=== PATIENT | female | born 1940 | race Caucasian/White ===

== ENCOUNTER 2023-05-18 14:19 | Emergency (ER) | payer MEDICARE, BC ==
[2023-05-18] MEDS ORDERED: Ipratropium/Albuterol 3 ML NEB ONE ×2 (14:52→15:55)
[2023-05-18 15:01] LABS: #Basophils 0.1 10x3/uL (0.0-0.2); #Eosinphils 0.5 10x3/uL (0.0-0.5); #Monocytes 0.8 10x3/uL (0.0-1.1); #Neutrophils 5.3 10x3/uL (1.5-8.4); %Basophils 0.7 % (0.0-2.0); %Lymphocytes 23.5 % (18.0-47.0); %Monocytes 8.9 % (0.0-10.0); %Neutrophils 60.7 % (40.0-75.0); Hematocrit 39.3 % (34.9-44.5); Hemoglobin 12.9 g/dL (12.0-15.5); Mean Corpuscular HGB CONC 32.8 g/dL (32.0-36.0); Mean Corpuscular Hemoglobin 28.2 pg (27.0-33.0); Mean Platelet Volume 9.4 fl (7.4-10.4); Platelet Count 297 10x3/uL (150-450); Red Blood Cell (RBC) Count 4.57 10x6/uL (3.90-5.03); White Blood Cell (WBC) Count 8.7 10x3/uL (3.5-10.5)
[2023-05-18 15:14] LABS: ALT (SGPT) 12 U/L (8-55); AST (SGOT) 20 U/L (5-34); Alkaline Phosphatase 83 U/L (40-110); Anion Gap 16 mmol/L (10-20); BUN (Urea Nitrogen) 16 mg/dL (9.8-20.1); Bilirubin, Total 0.4 mg/dL (0.2-1.2); Calc. Creatinine Clearance 0 mL/min (70-130); Calcium 8.9 mg/dL (7.8-10.44); Carbon Dioxide 28 mmol/L (23-31); Chloride 101 mmol/L (98-107); Estimated GFR 42; Globulin 2.8 g/dL (2.4-3.5); Glucose 107 mg/dL (83-110); Potassium 3.3 mmol/L (3.5-5.1); Protein, Total 6.8 g/dL (5.8-8.1); Sodium 142 mmol/L (136-145)
[2023-05-18] MEDS ORDERED: methylPREDNISolone Sod Succ/PF 125 MG/2 ML VIAL ONE (15:15)
[2023-05-18 17:30] LABS: Actual Bicarbonate (HCO3v) 27.9 mEq/L (22-28); Base Excess 2.2 mEq/L (-2 - +2); Calcium, Ionized (venous) 1.12 mmol/L (1.16-1.32); Chloride (VBG) 99 mmol/L (98-106); Hematocrit-VBG 41 % (36.0-47.0); Hemoglobin (Hb) 13.8 g/dL (11.7-16.1); Potassium (VBG) 2.97 mmol/L (3.70-5.30); Puncture Site Other Site; RapidComm Collect By CBN; Sodium 141.1 mmol/L (133-146); pH (venous) 7.388 (7.32-7.43)
== END 2023-05-18 18:57 | disposition home or self-care (01) ==
LOC: CSHERS 14:19
DX: R06.02 Shortness of breath (principal); I10 Essential (primary) hypertension
CPT/HCPCS: 36415; 71045; 80053; 82805; 83605; 85025; 85379; 93005; 94640; 94760; 96374; J2930; J7620

== ENCOUNTER 2023-08-26 13:25 | Inpatient (IN) | payer MEDICARE, BC ==
[2023-08-26] MEDS ORDERED: Ipratropium/Albuterol 3 ML NEB ONE (13:42)
[2023-08-26 14:17] LABS: #Basophils 0.1 10x3/uL (0.0-0.2); #Eosinphils 0.1 10x3/uL (0.0-0.5); #Monocytes 1.1 10x3/uL (0.0-1.1); %Basophils 0.7 % (0.0-2.0); %Eosinophils 1.6 % (0.0-6.0); %Lymphocytes 26.8 % (18.0-47.0); %Monocytes 15.3 % (0.0-10.0); %Neutrophils 55.3 % (40.0-75.0); Hematocrit 41.2 % (34.9-44.5); Hemoglobin 13.6 g/dL (12.0-15.5); Mean Corpuscular Hemoglobin 28.6 pg (27.0-33.0); Mean Corpuscular Volume 86.7 fl (81.6-98.3); Mean Platelet Volume 9.4 fl (7.4-10.4); Platelet Count 229 10x3/uL (150-450); RBC Distribution Width 13.8 % (11.5-14.5); Red Blood Cell (RBC) Count 4.75 10x6/uL (3.90-5.03); White Blood Cell (WBC) Count 7.3 10x3/uL (3.5-10.5)
[2023-08-26 14:35] LABS: PTT 26.8 sec (22.0-33.0)
[2023-08-26 14:41] LABS: ALT (SGPT) 20 U/L (8-55); AST (SGOT) 28 U/L (5-34); Albumin 3.8 g/dL (3.4-4.8); Alkaline Phosphatase 76 U/L (40-110); Anion Gap 16 mmol/L (10-20); BUN (Urea Nitrogen) 22 mg/dL (9.8-20.1); Bilirubin, Total 0.2 mg/dL (0.2-1.2); Calc. Creatinine Clearance 0 mL/min (70-130); Calcium 8.8 mg/dL (7.8-10.44); Carbon Dioxide 24 mmol/L (23-31); Chloride 99 mmol/L (98-107); Estimated GFR 39; Globulin 2.5 g/dL (2.4-3.5); Glucose 155 mg/dL (83-110); Lipase 42 U/L (8-78); Magnesium 1.9 mg/dL (1.6-2.6); Potassium 3.4 mmol/L (3.5-5.1); Protein, Total 6.3 g/dL (5.8-8.1); Sodium 136 mmol/L (136-145)
[2023-08-26 14:48] LABS: Troponin I 0.033 ng/mL (< 0.028)
[2023-08-26 15:09] LABS: SARS-CoV-2 NAA Rapid Test DETECTED (NotDetected)
[2023-08-26] MEDS ORDERED: Potassium Chloride 20 MEQ TAB ONE (15:45)
[2023-08-26] MEDS ORDERED: Aspirin Chewable 81 MG TAB ONE (15:47)
[2023-08-26] MEDS ORDERED: Acetaminophen 325 MG TAB PO PRN (15:57)
[2023-08-26] MEDS ORDERED: Senokot S 8.6-50 MG TAB PO PRN (15:57)
[2023-08-26] MEDS ORDERED: Acetaminophen 650 MG Suppository PR PRN (15:57)
[2023-08-26] MEDS ORDERED: Benzonatate 100 MG CAP PO PRN (15:57)
[2023-08-26] MEDS ORDERED: Ondansetron ODT 4 MG TAB PO PRN (15:57)
[2023-08-26] MEDS ORDERED: Sodium Chloride 0.9% 1,000 ML IV SCH (16:00)
[2023-08-26] MEDS ORDERED: Ventolin HFA Inhaler 60 PUFF INHALER INH PRN (16:20)
[2023-08-26 17:30] LABS: Troponin I 0.017 ng/mL (< 0.028)
[2023-08-26] MEDS ORDERED: Famotidine 20 MG TAB PO SCH (21:00)
[2023-08-26] MEDS ORDERED: Dexamethasone 10 MG/ML VIAL SLOW IVP SCH (21:00)
[2023-08-26 21:44] LABS: Troponin I 0.013 ng/mL (< 0.028)
[2023-08-26] MEDS ORDERED: Dexamethasone 4 MG TAB PO SCH (22:15)
[2023-08-26] MEDS: Ipratropium/Albuterol 3 ML NEB EZPAP SCH ×2 (22:33→22:49)
[2023-08-26] MEDS ORDERED: Ziprasidone 20 MG VIAL IM SCH (23:30)
[2023-08-26] MEDS ORDERED: Sterile Water 10 ML ONE (23:41)
[2023-08-26] MEDS: Simvastatin 10 MG TAB PO SCH (23:47)
[2023-08-27] MEDS: Ipratropium/Albuterol 3 ML NEB EZPAP SCH ×2 (03:02→07:00)
[2023-08-27 04:09] LABS: Anion Gap 17 mmol/L (10-20); BUN (Urea Nitrogen) 29 mg/dL (9.8-20.1); Calc. Creatinine Clearance 0 mL/min (70-130); Calcium 9.3 mg/dL (7.8-10.44); Carbon Dioxide 18 mmol/L (23-31); Chloride 104 mmol/L (98-107); Estimated GFR 39; Glucose 129 mg/dL (83-110); Potassium 4.2 mmol/L (3.5-5.1); Sodium 135 mmol/L (136-145)
[2023-08-27] MEDS ORDERED: Ventolin HFA Inhaler 60 PUFF INHALER INH SCH (07:15)
[2023-08-27] MEDS ORDERED: Ascorbic Acid 500 mg Chewable Tablet PO SCH (09:00)
[2023-08-27] MEDS ORDERED: Dexamethasone 20 MG/5 ML VIAL SLOW IVP SCH (09:00)
[2023-08-27] MEDS ORDERED: Dexamethasone 4 mg/ml Vial SLOW IVP SCH (09:00)
[2023-08-27] MEDS: guaiFENesin ER 600 MG TAB PO SCH ×2 (09:56→20:04)
[2023-08-27] MEDS: Ascorbic Acid 500 mg Chewable Tablet PO SCH (09:56)
[2023-08-27] MEDS: Ventolin HFA Inhaler 60 PUFF INHALER INH SCH ×4 (11:00→23:00)
[2023-08-27] MEDS ORDERED: Dexamethasone 4 MG TAB PO SCH (18:30)
[2023-08-27] MEDS ORDERED: cloNIDine 0.1 MG TAB PO PRN (18:44)
[2023-08-27] MEDS: Heparin 5,000 UNITS/ML VIAL SC SCH ×2 (20:03→20:16)
[2023-08-27] MEDS: Simvastatin 10 MG TAB PO SCH (20:04)
[2023-08-27] MEDS ORDERED: Cholecalciferol 1,000 UNITS (25 MCG) TAB PO SCH (21:00)
[2023-08-27] MEDS ORDERED: Multivit, Therapeutic 1 TAB PO SCH (21:00)
[2023-08-27] MEDS ORDERED: Famotidine 20 MG TAB PO SCH (21:00)
[2023-08-27] MEDS ORDERED: Zinc Sulfate 220 MG CAP PO SCH (21:00)
[2023-08-27] MEDS ORDERED: traZODone HCl 50 MG TAB PO SCH (23:00)
[2023-08-28 03:00] VITALS: BMI 25.4
[2023-08-28] MEDS: Ventolin HFA Inhaler 60 PUFF INHALER INH SCH ×4 (03:00→16:00)
[2023-08-28 04:22] LABS: #Monocytes 0.6 10x3/uL (0.0-1.1); #Neutrophils 8.4 10x3/uL (1.5-8.4); %Basophils 0.1 % (0.0-2.0); %Lymphocytes 8.6 % (18.0-47.0); %Monocytes 6.5 % (0.0-10.0); %Neutrophils 84.2 % (40.0-75.0); Hematocrit 40.1 % (34.9-44.5); Hemoglobin 13.3 g/dL (12.0-15.5); Mean Corpuscular HGB CONC 33.2 g/dL (32.0-36.0); Mean Corpuscular Hemoglobin 28.7 pg (27.0-33.0); Mean Corpuscular Volume 86.4 fl (81.6-98.3); Mean Platelet Volume 9.7 fl (7.4-10.4); Platelet Count 288 10x3/uL (150-450); RBC Distribution Width 13.7 % (11.5-14.5); Red Blood Cell (RBC) Count 4.64 10x6/uL (3.90-5.03); White Blood Cell (WBC) Count 9.9 10x3/uL (3.5-10.5)
[2023-08-28 04:42] LABS: ALT (SGPT) 19 U/L (8-55); AST (SGOT) 29 U/L (5-34); Albumin 3.9 g/dL (3.4-4.8); Alkaline Phosphatase 64 U/L (40-110); Anion Gap 19 mmol/L (10-20); BUN (Urea Nitrogen) 39 mg/dL (9.8-20.1); Bilirubin, Total 0.2 mg/dL (0.2-1.2); CRP (Inflammatory) 0.56 mg/dL (= or < 0.5); Calc. Creatinine Clearance 26 mL/min (70-130); Calcium 9.4 mg/dL (7.8-10.44); Carbon Dioxide 20 mmol/L (23-31); Chloride 102 mmol/L (98-107); Estimated GFR 33; Globulin 3.1 g/dL (2.4-3.5); Glucose 141 mg/dL (83-110); Magnesium 2.1 mg/dL (1.6-2.6); Phosphorus 3.7 mg/dL (2.3-4.7); Potassium 4.3 mmol/L (3.5-5.1); Sodium 137 mmol/L (136-145)
[2023-08-28] MEDS: Heparin 5,000 UNITS/ML VIAL SC SCH (09:00)
[2023-08-28] MEDS ORDERED: Aspirin 81 mg Enteric Coated Tablet PO SCH (09:00)
[2023-08-28] MEDS: Dexamethasone 4 MG TAB PO SCH ×2 (09:00→17:57)
[2023-08-28] MEDS: Ascorbic Acid 500 mg Chewable Tablet PO SCH (09:00)
[2023-08-28] MEDS: guaiFENesin ER 600 MG TAB PO SCH (09:00)
[2023-08-28 16:47] VITALS: BP 162/76; TEMP 98.5
[2023-08-28] MEDS ORDERED: Cyanocobalamin (Vitamin B-12) 1,000 MCG TAB PO SCH (21:00)
== END 2023-08-28 19:05 | disposition home or self-care (01) | DRG 177 ==
LOC: CSHERS 13:25 → CSHERHOLD 15:44 → CSHTELE 22:05 → OBSVTOIN 08-27 18:48
PROVIDERS: ADMIT Family Medicine; ATTEND Internal Medicine
PROC: 3E0333Z Introduction of Anti-inflammatory into Peripheral Vein, Percutaneous Approach (ICD-10-PCS; principal; 2023-08-27)
PROC: 8E0ZXY6 Isolation (ICD-10-PCS; 2023-08-27)
DX: U07.1 COVID-19 (principal); I21.A1 Myocardial infarction type 2; J12.82 Pneumonia due to coronavirus disease 2019; J96.01 Acute respiratory failure with hypoxia; K51.90 Ulcerative colitis, unspecified, without complications; E87.1 Hypo-osmolality and hyponatremia; N17.9 Acute kidney failure, unspecified; E87.20 Acidosis, unspecified; F03.94 Unspecified dementia, unspecified severity, with anxiety; I12.9 Hypertensive chronic kidney disease with stage 1 through stage 4 chronic kidney disease, or unspecified chronic kidney disease; E87.6 Hypokalemia; N18.30 Chronic kidney disease, stage 3 unspecified; E78.5 Hyperlipidemia, unspecified; R41.89 Other symptoms and signs involving cognitive functions and awareness; Z79.899 Other long term (current) drug therapy
CPT/HCPCS: 0241U; 36415; 36416; 71045; 80048; 80053; 83605; 83690; 83735; 84100; 84484; 85025; 85610; 85730; 86140; 87040; 93005; 94760; 96372; G0378; J1644; J3486; J7620; J8540

== ENCOUNTER 2023-10-14 11:35 | Inpatient (IN) | payer BC, MEDICARE ==
[~2023-10-14 11:35] MED LIST: Iopamidol 370 76% 100 ML VIAL ONE
[2023-10-14] MEDS ORDERED: Albuterol 2.5 MG (3 mL) NEB ONE ×2 (11:48→11:59)
[2023-10-14] MEDS ORDERED: Magnesium 2 GM/50 ML BAG (IN WATER) ONE (12:39)
[2023-10-14] MEDS ORDERED: methylPREDNISolone Sod Succ/PF 125 MG/2 ML VIAL ONE (12:39)
[2023-10-14 12:45] LABS: #Basophils 0.1 10x3/uL (0.0-0.2); #Eosinphils 1.2 10x3/uL (0.0-0.5); #Neutrophils 7.1 10x3/uL (1.5-8.4); %Basophils 0.8 % (0.0-2.0); %Eosinophils 9.8 % (0.0-6.0); %Lymphocytes 20.9 % (18.0-47.0); %Monocytes 8.4 % (0.0-10.0); %Neutrophils 59.8 % (40.0-75.0); Hematocrit 37.6 % (34.9-44.5); Hemoglobin 12.7 g/dL (12.0-15.5); Mean Corpuscular HGB CONC 33.8 g/dL (32.0-36.0); Mean Corpuscular Hemoglobin 29.5 pg (27.0-33.0); Mean Corpuscular Volume 87.2 fl (81.6-98.3); Mean Platelet Volume 9.3 fl (7.4-10.4); Platelet Count 304 10x3/uL (150-450); RBC Distribution Width 13.9 % (11.5-14.5); Red Blood Cell (RBC) Count 4.31 10x6/uL (3.90-5.03); White Blood Cell (WBC) Count 11.9 10x3/uL (3.5-10.5)
[2023-10-14 13:02] LABS: ALT (SGPT) 18 U/L (8-55); AST (SGOT) 25 U/L (5-34); Albumin 3.9 g/dL (3.4-4.8); Alkaline Phosphatase 78 U/L (40-110); Anion Gap 14 mmol/L (10-20); BUN (Urea Nitrogen) 12 mg/dL (9.8-20.1); Bilirubin, Total 0.4 mg/dL (0.2-1.2); Calc. Creatinine Clearance 0 mL/min (70-130); Calcium 9.2 mg/dL (7.8-10.44); Carbon Dioxide 28 mmol/L (23-31); Chloride 102 mmol/L (98-107); Estimated GFR 48; Globulin 2.6 g/dL (2.4-3.5); Glucose 115 mg/dL (83-110); Lipase 38 U/L (8-78); Potassium 4.1 mmol/L (3.5-5.1); Protein, Total 6.5 g/dL (5.8-8.1); Sodium 140 mmol/L (136-145)
[2023-10-14 14:35] LABS: Troponin I 0.324 ng/mL (< 0.028)
[2023-10-14 14:46] LABS: SARS-CoV-2 NAA Rapid Test Not Detected (NotDetected)
[2023-10-14] MEDS ORDERED: Furosemide 40 MG (4 mL) VIAL ONE (14:57)
[2023-10-14] MEDS ORDERED: Aspirin 325 MG TAB ONE (14:58)
[2023-10-14] MEDS ORDERED: Enoxaparin 60 MG (0.6 mL) SYRINGE ONE (16:07)
[2023-10-14] MEDS ORDERED: Acetaminophen 325 MG TAB PO PRN (16:24)
[2023-10-14] MEDS ORDERED: Ondansetron PF 4 MG/2 ML Vial IVP PRN (16:24)
[2023-10-14 17:23] LABS: Troponin I 0.263 ng/mL (< 0.028)
[2023-10-14 18:49] VITALS: BMI 19.8
[2023-10-14] MEDS: Ipratropium/Albuterol 3 ML NEB NEB SCH (19:34)
[2023-10-14 20:05] LABS: Troponin I 0.215 ng/mL (< 0.028)
[2023-10-14] MEDS: methylPREDNISolone Sod Succ 40 MG VIAL IVP SCH (22:10)
[2023-10-14] MEDS: Atorvastatin Calcium 40 MG TAB PO SCH (22:10)
[2023-10-14] MEDS: Azithromycin 250 MG TAB PO SCH (22:10)
[2023-10-14] MEDS: Memantine 10 MG TAB PO SCH (23:56)
[2023-10-15] MEDS: Arformoterol 15 MCG/2 ML NEB NEB SCH ×2 (03:21→07:15)
[2023-10-15] MEDS: Albuterol 2.5 MG (3 mL) NEB NEB SCH (03:21)
[2023-10-15] MEDS: Enoxaparin 60 MG (0.6 mL) SYRINGE SC SCH (04:48)
[2023-10-15 06:23] LABS: Anion Gap 15 mmol/L (10-20); BUN (Urea Nitrogen) 17 mg/dL (9.8-20.1); Calc. Creatinine Clearance 22 mL/min (70-130); Carbon Dioxide 26 mmol/L (23-31); Chloride 101 mmol/L (98-107); Estimated GFR 35; Glucose 144 mg/dL (83-110); Potassium 3.6 mmol/L (3.5-5.1); Sodium 138 mmol/L (136-145)
[2023-10-15 06:48] LABS: Hematocrit 34.8 % (34.9-44.5); Hemoglobin 11.4 g/dL (12.0-15.5); Mean Corpuscular HGB CONC 32.8 g/dL (32.0-36.0); Mean Corpuscular Hemoglobin 28.6 pg (27.0-33.0); Mean Corpuscular Volume 87.2 fl (81.6-98.3); Mean Platelet Volume 9.7 fl (7.4-10.4); Platelet Count 282 10x3/uL (150-450); RBC Distribution Width 14.1 % (11.5-14.5); Red Blood Cell (RBC) Count 3.99 10x6/uL (3.90-5.03); White Blood Cell (WBC) Count 7.1 10x3/uL (3.5-10.5)
[2023-10-15 07:02] LABS: MDiff Complete? YES
[2023-10-15 08:38] LABS: #Monocytes 0.2 10x3/uL (0.0-1.1); #Neutrophils 6.2 10x3/uL (1.5-8.4); %Basophils 0.1 % (0.0-2.0); %Lymphocytes 9.6 % (18.0-47.0); %Monocytes 2.3 % (0.0-10.0); %Neutrophils 87.6 % (40.0-75.0)
[2023-10-15] MEDS: Furosemide 20 MG (2 mL) VIAL SLOW IVP SCH (10:00)
[2023-10-15] MEDS: Aspirin Chewable 81 MG TAB PO SCH (15:56)
[2023-10-16] MEDS: Enoxaparin 60 MG (0.6 mL) SYRINGE SC SCH (03:42)
[2023-10-16 05:56] LABS: #Eosinphils 0.1 10x3/uL (0.0-0.5); #Monocytes 0.9 10x3/uL (0.0-1.1); #Neutrophils 9.6 10x3/uL (1.5-8.4); %Basophils 0.2 % (0.0-2.0); %Eosinophils 0.5 % (0.0-6.0); %Monocytes 6.9 % (0.0-10.0); %Neutrophils 73.9 % (40.0-75.0); Hematocrit 33.3 % (34.9-44.5); Hemoglobin 11.3 g/dL (12.0-15.5); Mean Corpuscular HGB CONC 33.9 g/dL (32.0-36.0); Mean Corpuscular Hemoglobin 29.6 pg (27.0-33.0); Mean Corpuscular Volume 87.2 fl (81.6-98.3); Mean Platelet Volume 9.7 fl (7.4-10.4); Platelet Count 266 10x3/uL (150-450); RBC Distribution Width 14.2 % (11.5-14.5); Red Blood Cell (RBC) Count 3.82 10x6/uL (3.90-5.03)
[2023-10-16 06:03] LABS: Anion Gap 12 mmol/L (10-20); BUN (Urea Nitrogen) 24 mg/dL (9.8-20.1); Calc. Creatinine Clearance 29 mL/min (70-130); Calcium 8.5 mg/dL (7.8-10.44); Carbon Dioxide 28 mmol/L (23-31); Chloride 102 mmol/L (98-107); Estimated GFR 47; Glucose 85 mg/dL (83-110); Potassium 3.4 mmol/L (3.5-5.1); Sodium 139 mmol/L (136-145)
[2023-10-16] MEDS: Ipratropium/Albuterol 3 ML NEB NEB PRN (07:30)
[2023-10-16] MEDS: Potassium Chloride 20 MEQ TAB PO SCH (09:02)
[2023-10-16] MEDS: methylPREDNISolone Sod Succ 40 MG VIAL IVP SCH (12:40)
[2023-10-16] MEDS: Mesalamine DR 400 mg Capsule PO SCH (13:21)
[2023-10-16] MEDS: Ipratropium/Albuterol 3 ML NEB NEB SCH (14:10)
[2023-10-16] MEDS: Memantine 10 MG TAB PO SCH (20:53)
[2023-10-16] MEDS: Simvastatin 10 MG TAB PO SCH (20:53)
[2023-10-16] MEDS: Cyanocobalamin (Vitamin B-12) 1,000 MCG TAB PO SCH (20:53)
[2023-10-17 04:57] LABS: Anion Gap 14 mmol/L (10-20); BUN (Urea Nitrogen) 21 mg/dL (9.8-20.1); Calc. Creatinine Clearance 34 mL/min (70-130); Calcium 8.7 mg/dL (7.8-10.44); Carbon Dioxide 25 mmol/L (23-31); Chloride 101 mmol/L (98-107); Estimated GFR 58; Glucose 136 mg/dL (83-110); Potassium 3.4 mmol/L (3.5-5.1); Sodium 137 mmol/L (136-145)
[2023-10-17 05:03] LABS: Hemoglobin 11.6 g/dL (12.0-15.5); Mean Corpuscular HGB CONC 33.1 g/dL (32.0-36.0); Mean Corpuscular Hemoglobin 28.7 pg (27.0-33.0); Mean Corpuscular Volume 86.6 fl (81.6-98.3); Mean Platelet Volume 9.7 fl (7.4-10.4); Platelet Count 250 10x3/uL (150-450); Red Blood Cell (RBC) Count 4.04 10x6/uL (3.90-5.03); White Blood Cell (WBC) Count 6.5 10x3/uL (3.5-10.5)
[2023-10-17 05:05] LABS: MDiff Complete? YES
[2023-10-17 05:16] LABS: Band 6 % (5-11); Lymphocytes 8 % (21-51); Monocytes 2 % (0-10); Neutrophil 84 % (42-75)
[2023-10-17 05:18] LABS: RBC Morph Comment Within Normal Limits
[2023-10-17 05:19] LABS: Platelet Adequacy Comment Appears Adequate
[2023-10-17] MEDS ORDERED: Polyethylene Glycol 3350 17 GM Packet PO PRN (07:42)
[2023-10-17] MEDS ORDERED: Potassium Chloride 20 MEQ TAB PO SCH (09:00)
[2023-10-17] MEDS: Enoxaparin 40 MG (0.4 mL) SYRINGE SC SCH (09:55)
[2023-10-17] MEDS: Cholecalciferol 1,000 UNITS (25 MCG) TAB PO SCH (09:55)
[2023-10-17] MEDS: Donepezil HCl 5 MG TAB PO SCH (09:56)
[2023-10-17] MEDS: Venlafaxine HCl XR 75 MG CAP PO SCH (09:57)
[2023-10-17] MEDS: Zinc Sulfate 220 MG CAP PO SCH (09:57)
[2023-10-17] MEDS: Amlodipine 5 MG TAB PO SCH (09:58)
[2023-10-17 12:38] VITALS: BP 187/86; TEMP 97.5
[2023-10-17] MEDS: Lisinopril 10 MG TAB PO SCH (13:14)
== END 2023-10-17 15:50 | DRG 191 ==
LOC: CSHERS 11:35 → CSHTELE 16:24
PROVIDERS: ADMIT Internal Medicine; ATTEND Family Medicine
DX: J44.1 Chronic obstructive pulmonary disease with (acute) exacerbation (principal); K51.90 Ulcerative colitis, unspecified, without complications; F41.0 Panic disorder [episodic paroxysmal anxiety]; F03.90 Unspecified dementia, unspecified severity, without behavioral disturbance, psychotic disturbance, mood disturbance, and anxiety; Z79.82 Long term (current) use of aspirin; Z79.899 Other long term (current) drug therapy; E78.5 Hyperlipidemia, unspecified; Z90.710 Acquired absence of both cervix and uterus; Z98.890 Other specified postprocedural states; Z11.52 Encounter for screening for COVID-19; I10 Essential (primary) hypertension
CPT/HCPCS: 36415; 71045; 71275; 80048; 80053; 83690; 83735; 83880; 84484; 85025; 85379; 93005; 93306; 94640; 94644; 94760; 94762; 96365; 96372; 96375; J1650; J1940; J2920; J2930; J3475; J7611; J7620; Q9967

== ENCOUNTER 2024-03-15 12:54 | Emergency (ER) | payer MEDICARE | END 2024-03-15 15:24 | disposition home or self-care (01) | LOC: CSHERS 12:54 | DX: S16.1XXA Strain of muscle, fascia and tendon at neck level, initial encounter (principal); S09.90XA Unspecified injury of head, initial encounter; I10 Essential (primary) hypertension; I48.91 Unspecified atrial fibrillation; W19.XXXA Unspecified fall, initial encounter; Z79.899 Other long term (current) drug therapy | CPT/HCPCS: 70450; 72125 ==

== ENCOUNTER 2024-03-30 11:19 | Emergency (ER) | payer MEDICARE ==
[2024-03-30] MEDS ORDERED: Pantoprazole 40 MG VIAL ONE (11:37)
[2024-03-30 12:22] LABS: INR-International Normal Ratio 1.1; PTT 26.6 sec (22.0-33.0); Prothrombin Time 12.3 sec (9.5-12.1)
[2024-03-30 12:31] LABS: Troponin I 0.015 ng/mL (< 0.028)
[2024-03-30 12:33] LABS: #Basophils 0.01 10x3/uL (0.0-0.2); #Eosinphils 0.01 10x3/uL (0.0-0.5); #Monocytes 1.26 10x3/uL (0.0-1.1); #Neutrophils 8.71 10x3/uL (1.5-8.4); %Basophils 0.1 % (0.0-2.0); %Eosinophils 0.1 % (0.0-6.0); %Lymphocytes 12.1 % (18.0-47.0); %Neutrophils 76.1 % (40.0-75.0); Mean Corpuscular HGB CONC 33.3 g/dL (32.0-36.0); Mean Corpuscular Volume 95.9 fL (81.6-98.3); Mean Platelet Volume 9.1 fL (7.4-10.4); Platelet Count 324 10x3/uL (150-450); RBC Distribution Width 14.8 % (11.5-14.5); Red Blood Cell (RBC) Count 2.19 10x6/uL (3.90-5.03); White Blood Cell (WBC) Count 11.5 10x3/uL (3.5-10.5)
[2024-03-30 14:18] LABS: ALT (SGPT) 11 U/L (8-55); AST (SGOT) 20 U/L (5-34); Albumin 2.4 g/dL (3.4-4.8); Alkaline Phosphatase 92 U/L (40-110); Anion Gap 17 mmol/L (10-20); BUN (Urea Nitrogen) 37 mg/dL (9.8-20.1); Bilirubin, Total 0.3 mg/dL (0.2-1.2); Calc. Creatinine Clearance 0 mL/min (70-130); Calcium 8.3 mg/dL (7.8-10.44); Carbon Dioxide 20 mmol/L (23-31); Chloride 104 mmol/L (98-107); Estimated GFR 26; Globulin 2.1 g/dL (2.4-3.5); Glucose 91 mg/dL (83-110); Potassium 5.2 mmol/L (3.5-5.1); Protein, Total 4.5 g/dL (5.8-8.1); Sodium 136 mmol/L (136-145)
[2024-03-30 15:12] LABS: Bilirubin 3+ (Negative); Blood, Urine 10 (Negative); Clarity Clear (Clear); Glucose, Urine (Dipstick) Normal (Negative); Ketone, Urine 5 mg/dL (Negative); Leukocyte 25 (Negative); Nitrite Positive (Negative); Protein, Urine (Dipstick) 30 mg/dl (Neg-Trace); Specific Gravity, Urine 1.015 (1.005-1.030)
[2024-03-30 15:23] LABS: Iron 24 ug/dL (50-170); Iron Binding Capacity, Total 130 mcg/dL (265-497)
[2024-03-30 15:24] LABS: CAUTI Indications for Culture Alt mental st,lethar; RBC/HPF 0-3 HPF (0-3); Squamous Epithelial 0-3 HPF (0-3)
[2024-03-30 15:25] LABS: Bacteria/HPF 2+ HPF (None Seen); Mucous/LPF 2+ LPF (<2+); Transitional Epithelial 0-3 HPF (None Seen)
[2024-03-30 15:27] LABS: Urine Culture Reflex No No
[2024-03-30] MEDS ORDERED: cefTRIAXone (ROCEPHIN) 1 GM VIAL ONE (16:02)
[2024-03-30] MEDS ORDERED: Pantoprazole 80 MG in Sodium Chloride 0.9% 100 ML IVPB SCH (16:15)
[2024-03-30 16:53] LABS: #Basophils 0.03 10x3/uL (0.0-0.2); #Eosinphils 0.01 10x3/uL (0.0-0.5); #Monocytes 1.67 10x3/uL (0.0-1.1); #Neutrophils 11.71 10x3/uL (1.5-8.4); %Basophils 0.2 % (0.0-2.0); %Eosinophils 0.1 % (0.0-6.0); %Lymphocytes 9.9 % (18.0-47.0); %Monocytes 11.1 % (0.0-10.0); %Neutrophils 77.6 % (40.0-75.0); Hematocrit 29.8 % (34.9-44.5); Hemoglobin 9.6 g/dL (12.0-15.5); Mean Corpuscular HGB CONC 32.2 g/dL (32.0-36.0); Mean Corpuscular Hemoglobin 31.2 pg (27.0-33.0); Mean Corpuscular Volume 96.8 fL (81.6-98.3); Platelet Count 289 10x3/uL (150-450); RBC Distribution Width 15.2 % (11.5-14.5); Red Blood Cell (RBC) Count 3.08 10x6/uL (3.90-5.03); White Blood Cell (WBC) Count 15.1 10x3/uL (3.5-10.5)
[2024-03-30] MEDS ORDERED: Dextrose 5 %-0.45 % NaCl 1,000 ML IV SCH (18:30)
== END 2024-03-30 17:08 | disposition short-term general hospital (02) ==
LOC: CSHERS 11:19
DX: K62.5 Hemorrhage of anus and rectum (principal); D62 Acute posthemorrhagic anemia; N17.9 Acute kidney failure, unspecified; N39.0 Urinary tract infection, site not specified; I10 Essential (primary) hypertension; Z79.899 Other long term (current) drug therapy; Z79.82 Long term (current) use of aspirin
CPT/HCPCS: 36430; 80053; 81001; 82728; 83540; 83550; 83605; 84484; 85025 ×2; 85610; 85730; 86850; 86900; 86901; 86920; 87040; 93005; 94760; J0696; J2470; P9016; P9040; 36415